=== PATIENT | female | born 1965 | race Caucasian/White ===

== ENCOUNTER 2022-10-22 13:50 | Emergency (ER) | payer OTHER ==
[2022-10-22 14:40] LABS: CHLORIDE,CL 105 mmol/L (98-107); SODIUM,NA 138 mmol/L (136-145)
[2022-10-22 14:41] LABS: ANION GAP 11.2 mmol/L (5-15); ESTIMATED GFR 74 mL/min (>=60)
== END 2022-10-22 15:52 | disposition home or self-care (01) ==
LOC: VM.ED 13:50
DX: H53.2 Diplopia (principal); E78.00 Pure hypercholesterolemia, unspecified; I10 Essential (primary) hypertension; E11.9 Type 2 diabetes mellitus without complications; E66.9 Obesity, unspecified; Z68.30 Body mass index [BMI] 30.0-30.9, adult; Z79.82 Long term (current) use of aspirin; Z79.899 Other long term (current) drug therapy; Z79.02 Long term (current) use of antithrombotics/antiplatelets; Z79.84 Long term (current) use of oral hypoglycemic drugs; Z87.891 Personal history of nicotine dependence; Z86.73 Personal history of transient ischemic attack (TIA), and cerebral infarction without residual deficits
CPT/HCPCS: 36415; 70450; 80053; 82550; 83615; 84484; 85025; 85610; 85730; 86140; 93005; 93010; 99284